=== PATIENT | male | born 1965 | race Caucasian/White ===

== ENCOUNTER 2017-04-01 14:45 | Emergency (ER) | payer MEDICARE ==
[~2017-04-01] VITALS: Ht 180.3 cm; Wt 70.3 kg
--- NOTE | 2017-04-01 14:56 | NUR ---
ARRIVAL PATIENT ARRIVED AFTER BEING SEEN AT URGENT CARE FOR COMPLAINTS OF CHEST PAIN PATIENT STATED THAT "IT HURTS WHEN I BREATHS DEEPLY' PATIENT HAS HAD STRESS TEST X2 WITHIN SIX MONTHS AND STATES THAT IT WAS ALL NORMAL DENIES CHEST PAIN RADIATION
--- NOTE | 2017-04-01 14:59 | PCM.EKG ---
[facility] Test Date: 2017-04-01 Test Time: 14:57:35 Pat Name: ARTURO HILARIO Department: Patient ID: [id number] Room: Gender: M [employer]oth Col[employer] Examiner: RT : 1965 Requested By: MILY BAUER Order Number: [id number] Reading MD: Mily BAUER Measurements Intervals [place] Rate: 50 P: 65 PA: 160 QRS: 60 QRSD: 100 T: 50 QT: 430 QTc: 392 Interpretive Statements Sinus bradycardia Otherwise normal ECG No previous ECG available for comparison Electronically Signed On 04-01-2017 15:49:08 [employer] by Mily BAUER Please click the below link to view image of tracing.
[2017-04-01 15:11] LABS: BASOPHIL # 0.1 10^3/uL (0.0-0.1); BASOPHIL % 1.1 % (0.0-0.2); EOSINOPHIL # 0.3 10^3/uL (0.0-0.2); EOSINOPHIL % 2.8 % (0.0-5.0); HEMOGLOBIN 15.3 g/dL (13.9-16.3); LYMPHOCYTES # 2.8 10^3/uL (1.0-4.8); LYMPHOCYTES % 30.8 % (24.0-44.0); MEAN CELL HGB 26.8 pg (26-34); MEAN CELL HGB CONCENTRATION 32.6 g/dL (33-37); MEAN CORP VOLUME 82.3 fL (78-100); MEAN PLATELET VOLUME 9.5 fL (7.8-11.0); MONOCYTES # 0.8 10^3/uL (0.3-0.8); MONOCYTES % 8.3 % (5.0-12.0); NEUTROPHIL # 5.2 10^3/uL (1.8-7.7); NEUTROPHILS % 56.8 % (41.0-85.0); RED CELL DISTRIBUTION WIDTH 13.5 % (11.5-14.5); WHITE BLOOD CELL 9.2 10^3/uL (4.5-11.0)
--- NOTE | 2017-04-01 15:28 | ER.PDOC ---
General Chief Complaint: Chest Pain-Cardiac Nature Stated Complaint: DYSPNEA Time seen by MD: 15:26 Source: patient Exam Limitations: no limitations History of Present Illness Initial Comments Difficulty breathing with inspiration for 3 days. No chest pain. Patient told me he has had 2 normal stress tests in the last 6 Months. Severity: moderate Prior Episodes/Possible Cause: occasional episodes Associated Symptoms: denies symptoms Prior symptoms/Treatment: Similar symptoms previous, Recently Hospitalized Allergies: Coded Allergies: No Known Allergies (Unverified , 04/01/17) Past Medical History Medical History: thyroid disease Surgical History: no surgical history Review of Systems Constitutional: no symptoms reported Respiratory: see HPI Cardiovascular: no symptoms reported Gastrointestinal: no symptoms reported Genitourinary: no symptoms reported All Other Systems: Reviewed and Negative Physical Exam General Appearance: No Apparent Distress, WD/WN Neck: Non-Tender, Full Range of Motion, Supple, Normal Inspection Respiratory: chest non-tender, lungs clear, normal breath sounds, no respiratory distress, no accessory muscle use Cardiovascular: Normal Peripheral Pulses, Regular Rate, Rhythm, No Edema, No Gallop, No JVD, No Murmur Gastrointestinal: Normal Bowel Sounds, No Organomegaly, No Pulsatile Mass, Non Tender, Soft Extremities: Normal Range of Motion 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 Skin: Normal Color Results/Orders Results/Orders Laboratory Tests Test 04/01/17 15:05 White Blood Count 9.2 10^3/uL (4.5-11.0) Red Blood Count 5.70 10^6/uL (4.50-5.90) Hemoglobin 15.3 g/dL (13.9-16.3) Hematocrit 46.9 % (37.0-53.0) Mean Corpuscular Volume 82.3 fL (78-100) Mean Corpuscular Hemoglobin 26.8 pg (26-34) Mean Corpuscular Hemoglobin Concent 32.6 g/dL (33-37) Red Cell Distribution Width 13.5 % (11.5-14.5) Platelet Count 640 10^3/uL (150-400) Mean Platelet Volume 9.5 fL (7.8-11.0) Neutrophils (%) (Auto) 56.8 % (41.0-85.0) Lymphocytes (%) (Auto) 30.8 % (24.0-44.0) Monocytes (%) (Auto) 8.3 % (5.0-12.0) Neutrophils # (Auto) 5.2 10^3/uL (1.8-7.7) Lymphocytes # (Auto) 2.8 10^3/uL (1.0-4.8) Monocytes # (Auto) 0.8 10^3/uL (0.3-0.8) Absolute Immature Granulocyte (auto 0.02 10^3 u/L (0-2) Eosinophils % 2.8 % (0.0-5.0) Basophils % 1.1 % (0.0-0.2) Basophils # 0.1 10^3/uL (0.0-0.1) Eosinophil Count 0.3 10^3/uL (0.0-0.2) Prothrombin Time 11.2 SEC (9.8-11.9) Prothrombin Time INR (Non-Therap) 1.1 Activated Partial Thromboplast Time 26.1 SEC (24.67-30.72) D-Dimer 0.38 mg/L (0.19-0.49) Sodium Level 136 mmol/L (132-145) Potassium Level 3.7 mmol/L (3.6-5.2) Chloride Level 102.0 mmol/L (96-109) Carbon Dioxide Level 29.3 mmol/L (20.0-32) Anion Gap 8.4 Blood Urea Nitrogen 8 mg/dL (7-18) Creatinine 1.01 mg/dL (0.59-1.40) Estimated GFR () 93.5 (>/=60) BUN/Creatinine Ratio 7.0 Glucose Level 92 mg/dL (70-110) Calcium Level 8.9 mg/dL (8.4-10.5) Total Bilirubin 0.5 mg/dL (0.2-1.0) Aspartate Amino Transf (AST/SGOT) 18 U/L (0-35) Alanine Aminotransferase (ALT/SGPT) 23 U/L (12-78) Alkaline Phosphatase 57 U/L (50-136) Total Creatine Kinase 100 U/L (39-308) Creatine Kinase MB 0.7 ng/mL (0.5-3.6) Troponin I < 0.02 ng/mL (0.00-0.05) Pro-B-Type Natriuretic Peptide 109 pg/mL (0-125) Total Protein 7.4 g/dL (6.4-8.2) Albumin 3.9 g/dL (3.4-5.0) Globulin 3.5 Percent Immature Gran (Cell Imm) 0.20 % (0.00-0.50) EKG/XRAY/CT/US EKG Comments: Normal XRAY: chest (Nothing acute) Departure Time of Disposition: 15:46 Disposition: 01 HOME, SELF-CARE Impression: Primary Impression: Anxiety Condition: Stable Referrals: PCP,UNKNOWN (PCP) PRIMARY CARE PROVIDER Additional Instructions: F/U with your PCP in 2-3 days Duration or Time Spent with Pa: 30 mins MILY BAUER MD Apr 01, 2017 15:28
--- NOTE | 2017-04-01 15:31 | DIREP ---
PROCEDURE:CHEST 1 VIEW COMPARISON:None. INDICATIONS:Chest pain FINDINGS: LUNGS/PLEURA:Lungs are clear of focal consolidation. No evidence of pleural effusion. VASCULATURE:Unremarkable pulmonary vasculature. CARDIAC:No cardiac silhouette abnormality or cardiomegaly. YASMIN/MEDIASTINUM:No visible mass or adenopathy. BONES:No acute fracture. OTHER:No additional findings. CONCLUSION: 1. No acute cardiopulmonary changes. Dictated by: Real Wilson M.D. on 04/01/2017 at 03:30 PM
[2017-04-01 15:38] LABS: CARBON DIOXIDE 29.3 mmol/L (20.0-32); GLUCOSE 92 mg/dL (70-110)
[2017-04-01 15:39] LABS: ALANINE AMINOTRANSFERASE 23 U/L (12-78); ALKALINE PHOSPHATASE 57 U/L (50-136); ASPARTATE AMINO TRANSFERASE 18 U/L (0-35); CALCIUM 8.9 mg/dL (8.4-10.5)
== END 2017-04-01 16:05 | disposition home or self-care (01) ==
LOC: ER 14:45
DX: F41.9 Anxiety disorder, unspecified (principal); E07.9 Disorder of thyroid, unspecified; R06.00 Dyspnea, unspecified
CPT/HCPCS: 36415; 71010; 80053; 82550; 82553; 83880; 84484; 85025; 85379; 85610; 93005; 99285

== ENCOUNTER 2017-08-03 13:37 | Emergency (ER) | payer MEDICARE ==
[~2017-08-03] VITALS: Ht 180.3 cm; Wt 68.0 kg
[2017-08-03 13:50] VITALS: BP 161/93
--- NOTE | 2017-08-03 14:14 | ER.PDOC ---
General Chief Complaint: Sore Throat Stated Complaint: THROAT BLOCKAGE,SOB TRAVEL OUT OF US: No Time seen by MD: 13:50 Source: patient Exam Limitations: no limitations History of Present Illness Initial Comments Pt states that he was eating a granola bar this AM and felt that it went the wrong way, no SOB or swallowing difficulties Timing/Duration: 1-3 hours Severity: mild Allergies: Coded Allergies: No Known Allergies (Unverified , 04/01/17) Past Medical History Medical History: thyroid disease Surgical History: no surgical history Social History Smoking: non-smoker Alcohol Use: occassionally Drug Use: none Review of Systems Constitutional: no symptoms reported EENTM: throat pain (foreign object) Respiratory: no symptoms reported Cardiovascular: no symptoms reported Gastrointestinal: no symptoms reported Genitourinary: no symptoms reported Musculoskeletal: no symptoms reported Skin: no symptoms reported Psychiatric/Neurological: no symptoms reported Hematologic/Lymphatic: no symptoms reported Immunological/Allergic: no symptoms reported Physical Exam General Appearance: No Apparent Distress, WD/WN EENT: eyes nml inspection, nml ENT inspection Neck: Non-Tender, Full Range of Motion Respiratory: chest non-tender, lungs clear CVS: reg rate & rhythm, no murmur, no gallop, pulses nml Gastrointestinal: Normal Bowel Sounds, No Organomegaly, No Pulsatile Mass, Non Tender Extremities: Normal Range of Motion, Non-Tender 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
--- NOTE | 2017-08-03 14:28 | DIREP ---
PROCEDURE:CHEST 1 VIEW COMPARISON:[facility], CR, XRAY CHEST SINGLE VW, 04/01/2017, 02:57 PM. INDICATIONS:FO FINDINGS: LUNGS/PLEURA:No significant pulmonary parenchymal abnormalities. No effusions. VASCULATURE:Normal. Unremarkable pulmonary vasculature. CARDIAC:Normal. No cardiac silhouette abnormality or cardiomegaly. MEDIASTINUM:Normal. No visible mass or adenopathy. BONES:Normal. No fracture or visible bony lesion. OTHER:Negative. CONCLUSION:Normal examination. There is no significant change as compared with the previous examination. Dictated by: Skip Walker MD on 08/03/2017 at 02:26 PM
--- NOTE | 2017-08-03 14:29 | DIREP ---
PROCEDURE:XRAY NECK SOFT TISSUES COMPARISON:None. INDICATIONS:FO TECHNIQUE: Frontal and lateral views FINDINGS: Nasopharynx:Normal. Oropharynx:Normal. Larynx and hypopharynx: Normal. Subglottic airway:Normal. Retropharyngeal soft tissues:Normal. Adenoids:Normal Epiglottis:Normal Other:Mild degenerative changes of the cervical spine. CONCLUSION:Normal examination. Dictated by: Skip Walker MD on 08/03/2017 at 02:27 PM
[2017-08-03 14:44] VITALS: BP 161/93
== END 2017-08-03 14:43 | disposition home or self-care (01) ==
LOC: ER 13:37
DX: T18.128A Food in esophagus causing other injury, initial encounter (principal); E07.9 Disorder of thyroid, unspecified; X58.XXXA Exposure to other specified factors, initial encounter; Y93.89 Activity, other specified; Y92.89 Other specified places as the place of occurrence of the external cause; Y99.8 Other external cause status
CPT/HCPCS: 70360; 71045; 99284